=== PATIENT | male | born 2000 | race Two or more races ===

== ENCOUNTER 2024-01-11 10:59 | Emergency (ER) | payer OTHER ==
[~2024-01-11] VITALS: Ht 182.9 cm; Wt 89.4 kg
[2024-01-11] MEDS ORDERED: ONDANSETRON HCL/PF 4 MG/2 ML VIAL ONE (11:13)
[2024-01-11] MEDS ORDERED: KETOROLAC TROMETHAMINE INJ 30 MG/ML VIAL ONE (11:13)
[2024-01-11] MEDS ORDERED: MORPHINE SULFATE INJ 4 MG/ML DISP.SYRIN ONE ×2 (11:13→13:22)
[2024-01-11] MEDS: ONDANSETRON HCL/PF - ER 4 MG/2 ML VIAL IV ONE (11:15)
[2024-01-11] MEDS: MORPHINE SULFATE INJ 2 MG/ML DISP.SYRIN IV ONE ×2 (11:15→13:22)
[2024-01-11] MEDS: KETOROLAC TROMETHAMINE INJ 30 MG/ML VIAL IV ONE (11:16)
[2024-01-11] MEDS ORDERED: TRAM50TA2 PO (13:25)
[2024-01-11] MEDS ORDERED: KETO10TA2 PO (13:25)
[2024-01-11 13:43] VITALS: BP 128/67; TEMP 98.7; O2SAT 100
== END 2024-01-11 13:44 | disposition home or self-care (01) ==
LOC: ER 11:10
DX: S42.022A Displaced fracture of shaft of left clavicle, initial encounter for closed fracture (principal); S00.12XA Contusion of left eyelid and periocular area, initial encounter; Z79.899 Other long term (current) drug therapy; Z60.2 Problems related to living alone; W01.0XXA Fall on same level from slipping, tripping and stumbling without subsequent striking against object, initial encounter; Y93.89 Activity, other specified; Y92.89 Other specified places as the place of occurrence of the external cause; Y99.8 Other external cause status
CPT/HCPCS: 99285; 72125; 96374; 96375; 96376; 73000; 70450; J2270 ×2; J1885; J2405 ×2